=== PATIENT | male | born 1935 | race Caucasian/White ===

== ENCOUNTER 2019-09-19 17:29 | Emergency (ER) | payer OTHER, MEDICARE ==
[2019-09-19 17:55] VITALS: TEMP 97.4; BMI 36.5
--- NOTE | 2019-09-19 18:42 | PDOC ---
History of Present Illness - General Chief Complaint: Injury Stated Complaint: FELL/HEAD INJURY - History of Present Illness Initial Comments: 09/19/19 20:01 Demarcus Jamil is an 84yo man with a PMH of Parkinsons, HTN, HLD who presented to the ED following a witnessed fall. Per EMS, Mr Jamil was walking down cement stairs outside the library when he tripped and fell. Per report he "tumbled down the stairs." EMS reported that he was oriented x2 when they arrived at the scene. Mr Jamil is now only mumbling incoherently and unable to provide any additional information. 09/19/19 20:02 Past History - Past Medical History Allergies/Adverse Reactions: Allergies Allergy/AdvReac Type Severity Reaction Status Date / Time No Known Allergies Allergy Verified 11/01/15 14:21 Home Medications: Ambulatory Orders Allopurinol [Zyloprim -] 100 mg PO DAILY 11/01/15 Aspirin [ASA -] 81 mg PO DAILY 11/01/15 Atorvastatin Ca [Lipitor -] 40 mg PO HS 11/01/15 Cyanocobalamin [Vitamin B12 -] 1,000 mcg PO DAILY 11/01/15 Dorzolamide HCl/Timolol Maleat [Dorzolamide-Timolol Eye Drops] 1 drop OU BID 08/06 Ezetimibe [Zetia] 10 mg PO DAILY 11/01/15 Hydrochlorothiazide [Hctz -] 25 mg PO DAILY 11/01/15 Multivitamins [Tab-A-Vit -] 1 tab PO DAILY 11/01/15 Pyridoxine HCl (B-6) [Vitamin B6] 50 mg PO DAILY 11/01/15 Ranolazine [Ranexa] 500 mg PO DAILY 11/01/15 Travoprost (Benzalkonium) [Travatan 0.004% Eye Drop] 1 drop OU DAILY 11/01/15 Vitamin E 400 unit PO DAILY 11/01/15 COPD: No Other medical history: unknown - Surgical History Abdominal Surgery: Yes (BOWEL OBSTRUCTION) Appendectomy: Yes - Psycho Social/Smoking Cessation Hx Smoking History: Smoker current status UNK Have you smoked in the past 12 months: No Information on smoking cessation initiated: No Hx Alcohol Use: No Drug/Substance Use Hx: No Substance Use Type: None Review of Systems - Review of Systems Comments:: Could not obtain, pt mumbling only *Physical Exam - Vital Signs Last Vital Signs Temp Pulse Resp BP Pulse Ox 97.4 F L 44 L 24 H 164/72 96 09/19/19 17:41 09/19/19 18:13 09/19/19 18:13 09/19/19 18:13 09/19/19 18:13 - Physical Exam General: Appears stated age. Awake, mumbling. HEENT: 2-3cm abrasion/laceration without active bleeding to posterior head. Eyes open, equal, reactive. No additional trauma. No apparent posterior neck tenderness Cards: Bradycardic, regular, no murmur appreciated Pulm: Comfortable on room air, clear to auscultation bilaterally Back: No deformity, abrasion to Rt flank, no midline tenderness Abd: Soft, nontender, nondistended, FAST negative : No blood at urethral meatus Rectal: Normal tone, no blood noted, no perianal lesions Ext: No deformity, abrasion to right PCIS and right upper arm, no contusions, no swelling, no erythema. No LE edema. Moves all extremities Vasc: Extremities WWP. Palpable radial and pedal pulses bilaterally Skin: Abrasions as above. No contusions or erythema Neuro: Awake. Minimally responsive, does not follow commands, eyes open, does not withdraw to pain, GCS 9. CN grossly intact Procedures - Intubation Time of Intubation: 19:50 Intubation Method: orotracheal Blade used: Glidescope (2nd attempt. Initial attempt with Mac 3) Tube Size (Fr): 7.5 Medications: Etomidate (20), Rocuronium (50) Tube position confirmed by: Direct visualization, CO2 detector, Chest x-ray, Breath sounds Breath Sounds after Intubation: equal Intubation Complications: no complications Post Intubation Xray: Yes ED Treatment Course - RADIOLOGY Radiology Studies Ordered: Category Date Time Status CERVICAL SPINE CT W/O CONTR [CT] Stat CT Scan 09/19/19 18:[address] WITHOUT CONTRAST [CT] Stat CT Scan 09/19/19 18:37 Ordered Medical Decision Making - Medical Decision Making 09/19/19 18:42 Demarcus Jamil is an 84yo man with a PMH of Parkinson's, HT, HLD who presents following a fall on the library stairs today. The fall was witnessed by bystanders and his family, and he reportedly "tumbled." He takes ASA, likely plavix per family but is not on any other blood thinners. - CT head, CT c-spine ordered - Pt taken to CT 09/19/19 19:58 - CT head w/ b/l subdural and subarachnoid hematomas - Spoke to trauma team, Dr Vaughn, at [place]. Will accept as a level 1 trauma. Will complete additional CTs after transfer - Trauma assessment completed. FAST negative. Abrasions to right PCIS, rt flank , right upper arm. Abrasion/laceration to posterior head w/o active bleeding - FAST negative - GCS 9. Eyes open, moves all extremities but does not withdraw to pain, mumbles incoherently. Intubated for airway protection during transport given decline in mental status since arrival - RSI w/ preoxygenation to 100%. 20mg etomidate, 50mg rocuronium used. Initial attempt to intubate with Mac 3, but light malfunctioned. Subsequent attempt w/ glidescope successful. CO2 detector used to verify. CXR ordered. - Propofol drip post intubation 09/19/19 20:17 - EMS arrived for transport Seen with Dr Rancho Ramirez [id number] Discharge - Discharge Information Problems reviewed: Yes Clinical Impression/Diagnosis: Bilateral subdural hematomas Subarachnoid hematoma Qualifiers: Encounter type: initial encounter Loss of consciousness presence/duration: with LOC of unspecified duration Qualified Code(s): S06.6X9A - Traumatic subarachnoid hemorrhage with loss of consciousness of unspecified duration, initial encounter Condition: Guarded Disposition: TRANSFER ACUTE CARE/OTHER HOSP - Follow up/Referral - Patient Discharge Instructions - Post Discharge Activity - Transfer to Acute Care Facility Receiving Facility Name: [facility] (Level 1 trauma)
--- NOTE | 2019-09-19 19:34 | PDOC ---
Attending Attestation - Resident Resident Name: Yessica Ramirez - ED Attending Attestation I have performed the following: I have examined & evaluated the patient, The case was reviewed & discussed with the resident, I agree w/resident's findings & plan - HPI HPI: 09/19/19 19:32 see resident hpi - Physicial Exam PE: 09/19/19 19:33 agree with resident exam - Critical Care Time Total Critical Care Time: 45 Critical Care Statement: The care of this patient involved high complexity decision making to prevent further life threatening deterioration of the patient 's condition and/or to evaluate & treat vital organ system(s) failure or risk of failure. - Medical Decision Making 09/19/19 [id number] male status post fall with acute subdural and acute subarachnoid bleeding on head CT GCS is 9, patient is not following commands well [facility] are requesting airway protection/intubation prior to transport They will proceed with tillman scanning at their facility
[2019-09-19] MEDS ORDERED: RAPID SEQUENCE INTUBATION KIT NR ONE (19:39)
[2019-09-19] MEDS ORDERED: PROPOFOL 1,000,000 MCG/100 ML VIAL IVPB SCH (20:00)
[2019-09-19] MEDS ORDERED: PROPOFOL 1,000,000 MCG/100 ML VIAL ONE (20:02)
[2019-09-19] MEDS ORDERED: ETOMIDATE 40 MG/20 ML VIAL IVPUSH ONE (20:14)
[2019-09-19] MEDS ORDERED: PROPOFOL 200 MG/20 ML VIAL IVPUSH ONE (20:14)
[2019-09-19 20:15] VITALS: BP 183/79; PULSE 55
[2019-09-19] MEDS ORDERED: ROCURONIUM BROMIDE 50 MG/5 ML VIAL IV ONE (20:15)
--- NOTE | 2019-09-20 12:41 | EKG ---
Test Reason : Blood Pressure : / mmHG Vent. Rate : 045 BPM Atrial Rate : 045 BPM P-R Int : 212 ms QRS Dur : 100 ms QT Int : 534 ms P-R-T Axes : 001 102 043 degrees QTc Int : 461 ms SINUS BRADYCARDIA WITH 1ST DEGREE A-V BLOCK WITH PREMATURE ATRIAL COMPLEXES RIGHTWARD AXIS BORDERLINE ECG NO PREVIOUS ECGS AVAILABLE Confirmed by DAREK FAY MD ([id number]) on 09/20/2019 12:40:38 PM Referred By: Confirmed By:DAREK FAY MD
== END 2019-09-19 20:31 | disposition short-term general hospital (02) ==
LOC: JER 17:29
PROC: 0BH17EZ Insertion of Endotracheal Airway into Trachea, Via Natural or Artificial Opening (ICD-10-PCS; principal; 2019-09-19)
PROC: 3E033FZ Introduction of Intracirculatory Anesthetic into Peripheral Vein, Percutaneous Approach (ICD-10-PCS; 2019-09-19)
PROC: 3E033FZ Introduction of Intracirculatory Anesthetic into Peripheral Vein, Percutaneous Approach (ICD-10-PCS; 2019-09-19)
DX: S06.6X9A Traumatic subarachnoid hemorrhage with loss of consciousness of unspecified duration, initial encounter (principal); S06.5X9A Traumatic subdural hemorrhage with loss of consciousness of unspecified duration, initial encounter; W10.8XXA Fall (on) (from) other stairs and steps, initial encounter; Y93.89 Activity, other specified; Y92.241 Library as the place of occurrence of the external cause; Y99.8 Other external cause status; I10 Essential (primary) hypertension; E78.5 Hyperlipidemia, unspecified; G20 Parkinson's disease; Z79.82 Long term (current) use of aspirin
CPT/HCPCS: 70450-TC; 71045-TC-FY; 72125-TC; 72170-TC-FY; 93005; 93010; 99281-25